=== PATIENT | male | born 1990 | race Caucasian/White ===

== ENCOUNTER 2017-05-24 04:58 | Emergency (ER) | payer OTHER ==
[~2017-05-24 04:58] MED LIST: ABIL5TAB; AMBI5TAB; DEPA500T2; No Historical Meds
[2017-05-24 05:03] VITALS: BP 136/85
== END 2017-05-24 06:26 | disposition left against medical advice (07) ==
LOC: M ED 04:58
DX: S09.90XA Unspecified injury of head, initial encounter (principal); X58.XXXA Exposure to other specified factors, initial encounter; Y92.89 Other specified places as the place of occurrence of the external cause; Y93.89 Activity, other specified; Y99.8 Other external cause status; Z53.29 Procedure and treatment not carried out because of patient's decision for other reasons

== ENCOUNTER → 2017-06-11 | Outpatient (CLI) | payer OTHER ==
[2017-06-11 12:49] LABS: MEAN CORPUSCULAR HEMOGLOBIN 30.6 pg (27.0-33.0); MEAN CORPUSCULAR HGB CONC 33.1 g/dl (32.0-36.5); MEAN CORPUSCULAR VOLUME 92.4 fl (80.0-96.0); RED CELL DISTRIBUTION WIDTH 13.2 % (11.5-14.5); WHITE BLOOD COUNT 8.3 K/mm3 (4.0-10.0)
[2017-06-11 13:13] LABS: ALBUMIN 3.7 GM/DL (3.2-5.2); ALBUMIN/GLOBULIN RATIO 1.06 (1.00-1.93); ALKALINE PHOSPHATASE 121 U/L (45-117); ALT/SGPT 52 U/L (12-78); ANION GAP 9 MEQ/L (8-16); AST/SGOT 23 U/L (15-37); BILIRUBIN,TOTAL 0.2 MG/DL (0.2-1.0); BLOOD UREA NITROGEN 7 MG/DL (7-18); CALCIUM LEVEL 8.9 MG/DL (8.5-10.1); CARBON DIOXIDE LEVEL 29 MEQ/L (21-32); CHLORIDE LEVEL 104 MEQ/L (98-107); CHOLESTEROL LEVEL 232 MG/DL (<200); CREATININE FOR GFR 1.09 MG/DL (0.70-1.30); GLOMERULAR FILTRATION RATE > 60.0 (>60); GLUCOSE, FASTING 81 MG/DL (70-105); POTASSIUM SERUM 4.8 MEQ/L (3.5-5.1); SODIUM LEVEL 142 MEQ/L (136-145); TOTAL PROTEIN 7.2 GM/DL (6.4-8.2); TRIGLYCERIDES LEVEL 408 MG/DL (<150)
== END ==
LOC: M LAB 11:53
PROVIDERS: ATTEND Family Medicine
DX: D64.9 Anemia, unspecified (principal)

== ENCOUNTER → 2017-09-09 | Outpatient (CLI) | payer OTHER ==
--- NOTE | 2017-09-09 16:57 | REP ---
LUMBOSACRAL SPINE, FIVE VIEWS: Lumbosacral spine performed. There is on compression fracture or malalignment with normal lumbar lordosis. There is no spondylolysis or spondylolisthesis. There is mild disc space narrowing and subchondral sclerosis at L4-5 and L5-S1 with sclerosis at the posterior facet joints at these levels as well. Posterior elements are intact. IMPRESSION: Mild degenerative changes. Signed by Howie Cortez MD 09/10/2017 09:16 A
== END ==
LOC: M RAD 15:57
PROVIDERS: ATTEND Family Medicine
DX: M54.5 Low back pain (principal)

== ENCOUNTER → 2017-11-13 | Outpatient (CLI) | payer OTHER ==
[2017-11-13 14:20] LABS: HEMATOCRIT 49.6 % (42.0-52.0); HEMOGLOBIN 15.9 g/dl (14.0-18.0); MEAN CORPUSCULAR HEMOGLOBIN 29.2 pg (27.0-33.0); MEAN CORPUSCULAR HGB CONC 32.1 g/dl (32.0-36.5); MEAN CORPUSCULAR VOLUME 91.2 fl (80.0-96.0); PLATELET COUNT, AUTOMATED 324 10^3/uL (150-450); RED BLOOD COUNT 5.44 10^6/uL (4.30-6.10); RED CELL DISTRIBUTION WIDTH 13.5 % (11.5-14.5); WHITE BLOOD COUNT 8.8 10^3/uL (4.0-10.0)
[2017-11-13 14:43] LABS: ESTIMATED AVERAGE GLUCOSE 105 MG/DL (60-110); HEMOGLOBIN A1c 5.3 %
[2017-11-13 15:03] LABS: TESTOSTERONE 397 NG/DL (241-827); TOTAL 25(OH) VITAMIN D 12.8 NG/ML (30.0-100.0)
[2017-11-13 15:16] LABS: ALBUMIN 3.9 GM/DL (3.2-5.2); ALBUMIN/GLOBULIN RATIO 0.93 (1.00-1.93); ALKALINE PHOSPHATASE 129 U/L (45-117); ALT/SGPT 46 U/L (12-78); ANION GAP 7 MEQ/L (8-16); AST/SGOT 27 U/L (7-37); BILIRUBIN,TOTAL 0.3 MG/DL (0.2-1.0); BLOOD UREA NITROGEN 10 MG/DL (7-18); CALCIUM LEVEL 9.1 MG/DL (8.5-10.1); CARBON DIOXIDE LEVEL 30 MEQ/L (21-32); CHLORIDE LEVEL 103 MEQ/L (98-107); CHOLESTEROL LEVEL 258 MG/DL (<200); CHOLESTEROL RISK RATIO 8.322 (<5); CREATININE FOR GFR 1.05 MG/DL (0.70-1.30); GLOMERULAR FILTRATION RATE > 60.0 (>60); GLUCOSE, FASTING 79 MG/DL (70-100); HDL CHOLESTEROL 31 MG/DL (>40); LDL CHOLESTEROL 170.8 MG/DL (<100); NON-HDL-C 227 MG/DL; POTASSIUM SERUM 4.7 MEQ/L (3.5-5.1); SODIUM LEVEL 140 MEQ/L (136-145); THYROID STIMULATING HORMONE 0.878 uIU/ML (0.358-3.740); TOTAL PROTEIN 8.1 GM/DL (6.4-8.2); TRIGLYCERIDES LEVEL 281 MG/DL (<150)
== END ==
LOC: M LAB 13:12
DX: R53.83 Other fatigue (principal); I10 Essential (primary) hypertension
CPT/HCPCS: 84403

== ENCOUNTER 2018-01-29 18:31 | Emergency (ER) | payer OTHER ==
[2018-01-29] MEDS: NORCO, ANEXSIA 5/325MG TABLET (HYDROcodone/ACETAMINOPHEN) PO (19:35)
== END 2018-01-29 19:41 | disposition home or self-care (01) ==
LOC: M ED 18:31
DX: K13.79 Other lesions of oral mucosa (principal); I10 Essential (primary) hypertension; F17.200 Nicotine dependence, unspecified, uncomplicated; Z79.899 Other long term (current) drug therapy
CPT/HCPCS: 99282

== ENCOUNTER 2018-02-05 08:36 | Emergency (ER) | payer OTHER ==
[2018-02-05] MEDS: NORCO, ANEXSIA 5/325MG TABLET (HYDROcodone/ACETAMINOPHEN) PO (09:39)
== END 2018-02-05 09:40 | disposition home or self-care (01) ==
LOC: M ED 08:36
DX: K13.79 Other lesions of oral mucosa (principal); M27.3 Alveolitis of jaws; Z98.818 Other dental procedure status; I10 Essential (primary) hypertension; F41.9 Anxiety disorder, unspecified; F17.200 Nicotine dependence, unspecified, uncomplicated; Z79.899 Other long term (current) drug therapy
CPT/HCPCS: 99282

== ENCOUNTER 2018-02-09 09:03 | Day surgery (SDC) | payer OTHER ==
[2018-02-09] MEDS: NS 1,000 ML IV (09:26)
[2018-02-09] MEDS ORDERED: PROPOFOL 200 MG/20 ML VIAL As Ordered ×2 (09:41→10:31)
[2018-02-09] MEDS ORDERED: LIDOCAINE 2% INJ 100 MG/5 ML SDV (FOR ANES.) As Ordered (09:41)
[2018-02-09] MEDS ORDERED: fentaNYL 100 MCG/2 ML INJECTION (J3010) As Ordered (10:05)
== END 2018-02-09 11:21 | disposition home or self-care (01) ==
LOC: M OPP 09:03
DX: K64.0 First degree hemorrhoids (principal); R10.32 Left lower quadrant pain; K62.5 Hemorrhage of anus and rectum; R19.7 Diarrhea, unspecified; K22.8 Other specified diseases of esophagus; K22.10 Ulcer of esophagus without bleeding; K31.89 Other diseases of stomach and duodenum; R12 Heartburn; K50.90 Crohn's disease, unspecified, without complications; F41.9 Anxiety disorder, unspecified; I10 Essential (primary) hypertension; F17.210 Nicotine dependence, cigarettes, uncomplicated; M54.2 Cervicalgia; G40.89 Other seizures; M12.9 Arthropathy, unspecified; K21.9 Gastro-esophageal reflux disease without esophagitis; Z79.899 Other long term (current) drug therapy
CPT/HCPCS: 45378

== ENCOUNTER → 2018-10-11 | Outpatient (CLI) | payer OTHER ==
[~2018-10-11] MED LIST changes: +ALPR0.5T3 PO; +CYCL5TAB PO; +DICY20TA11; +FLUO20CA19; +IBUP-1022 PO; +LISI-538 PO; +NORCOTAB PO; +TYLETAB14 PO
== END ==
LOC: M LAB 15:49
PROVIDERS: ATTEND Family Medicine
DX: F41.9 Anxiety disorder, unspecified (principal)

== ENCOUNTER 2020-11-06 16:40 | Emergency (ER) | payer OTHER ==
[~2020-11-06] VITALS: Ht 172.7 cm; Wt 86.4 kg
[~2020-11-06 16:40] MED LIST changes: -FLUO20CA19; +FLUO20CA22; +HYDR-3715 PO; -LISI-538 PO; +LISI20TA33 PO; -NORCOTAB PO
[2020-11-06] MEDS ORDERED: CLIN300C6 (16:49)
[2020-11-06] MEDS ORDERED: ACET-897 PO (16:49)
[2020-11-06] MEDS ORDERED: AMPICILLIN SOD/SULBACTAM SOD 3 GM in D5W MINI-BAG PLUS 100 ML IV ONE (18:00)
[2020-11-06] MEDS ORDERED: NS 1,000 ML IV ONE (18:00)
[2020-11-06] MEDS ORDERED: KETOROLAC 30 MG/ML 1ML VIAL IV ONE (18:00)
[2020-11-06] MEDS ORDERED: dexameTHASONE 20MG/5ML VIAL (J1100 PER 1MG) IV ONE (18:00)
[2020-11-06 19:04] LABS: BILIRUBIN,DIRECT 0.1 MG/DL (0.0-0.2); BILIRUBIN,TOTAL 0.6 MG/DL (0.2-1.0); C REACTIVE PROTEIN QUANTITATIV 5.24 MG/DL (0.00-0.30)
[2020-11-06 19:09] LABS: ERYTHROCYTE SEDIMENTATION RATE 5 mm/hr (0-15)
[2020-11-06 19:10] LABS: BASO % 0.2 % (0.0-1.0); EOS # 0.1 10^3/uL (0.0-0.5); EOS % 0.4 % (0.0-3.0); HEMATOCRIT 51.9 % (42.0-52.0); HEMOGLOBIN 16.9 g/dl (13.5-17.5); LYMPH # 1.6 10^3/uL (1.5-5.0); LYMPH % 11.5 % (24.0-44.0); MEAN CORPUSCULAR HEMOGLOBIN 29.2 pg (27.0-33.0); MEAN CORPUSCULAR HGB CONC 32.6 g/dl (32.0-36.5); MEAN CORPUSCULAR VOLUME 89.6 fl (80.0-96.0); MONO % 6.8 % (0.0-5.0); NEUTROPHILS # 11.3 10^3/uL (1.5-8.5); NEUTROPHILS % 80.6 % (36.0-66.0); PLATELET COUNT, AUTOMATED 301 10^3/uL (150-450); RED BLOOD COUNT 5.79 10^6/uL (4.30-6.10)
[2020-11-06 19:12] LABS: WHITE BLOOD COUNT 14.1 10^3/uL (4.0-10.0)
[2020-11-06] MEDS ORDERED: ISOVUE-370 76% 100ML VIAL As Ordered ONE (19:41)
[2020-11-06] MEDS ORDERED: NORCO, ANEXSIA 5/325MG TABLET (HYDROcodone/ACETAMINOPHEN) PO ONE (19:45)
--- NOTE | 2020-11-06 20:37 | REPVR ---
PROCEDURE INFORMATION: Exam: CT Neck With Contrast Exam date and time: 11/06/2020 8:09 PM Age: 30 years old Clinical indication: Pain; Other: Maxillary; Additional info: Significant maxillary swelling into submandibular TECHNIQUE: Imaging protocol: Computed tomography images of the neck with intravenous contrast. Radiation optimization: All CT scans at this facility use at least one of these dose optimization techniques: automated exposure control; mA and/or kV adjustment per patient size (includes targeted exams where dose is matched to clinical indication); or iterative reconstruction. Contrast material: ISOVUE 370; Contrast volume: 75 ml; Contrast route: INTRAVENOUS (IV); COMPARISON: No relevant prior studies available. FINDINGS: Paranasal sinuses: Circumferential mucosal thickening in the left maxillary sinus. Remaining sinuses are clear. No layering sinus fluid. Nasopharynx: Unremarkable. Oropharynx: Unremarkable. No significant tonsillar enlargement. Hypopharynx: Unremarkable. Larynx: Unremarkable. Normal epiglottis. Retropharyngeal space: Unremarkable. Submandibular/Parotid glands: Normal. Glands are normal in size. Thyroid: Normal. No enlarged or calcified nodules. Lymph nodes: Unremarkable. No lymphadenopathy. Trachea: Visualized trachea is unremarkable. Lungs: Unremarkable as visualized. Bones/joints: Unremarkable. No acute fracture. Soft tissues: Mild facial soft tissue swelling in the upper lip and anterior to the left maxilla. No abscess or drainable fluid collection. No subcutaneous gas or foreign bodies. IMPRESSION: Left facial cellulitis. No abscess or fluid collections. Electronically signed by: Philipp Freire On 11/06/2020 20:37:24 PM
[2020-11-06] MEDS ORDERED: AUGM875T28 PO (21:09)
[2020-11-06] MEDS ORDERED: HYDR-3713 PO (21:09)
[2020-11-06] MEDS ORDERED: DECA4TAB PO (21:11)
[2020-11-06] MEDS ORDERED: NORCO 5/325MG TABLET (BULK FOR ED) PO ONE (21:15)
[2020-11-06 21:28] VITALS: BP 145/89
== END 2020-11-06 21:32 | disposition home or self-care (01) ==
LOC: M ED 16:40
DX: L03.211 Cellulitis of face (principal); K08.89 Other specified disorders of teeth and supporting structures; F17.210 Nicotine dependence, cigarettes, uncomplicated
CPT/HCPCS: 70491; 80047; 80076; 83605; 85025; 85652; 86140; 87040; 87880; 96365; 96366; 96375; 99284; J1100; J1885; Q9967

== ENCOUNTER 2020-12-04 15:44 | Emergency (ER) | payer OTHER ==
[~2020-12-04] VITALS: Ht 172.7 cm; Wt 86.4 kg
[~2020-12-04 15:44] MED LIST changes: +ACET-897 PO; +AUGM875T28 PO; +CLIN300C6; +DECA4TAB PO; +HYDR-3713 PO
[2020-12-04] MEDS ORDERED: PERCOCET 5MG/325MG TAB PO ONE (16:05)
--- NOTE | 2020-12-04 16:24 | REP ---
INDICATION: fall COMPARISON: None. TECHNIQUE: Axial noncontrast images from the skull base to the thoracic inlet with coronal and sagittal re-formations This CT examination was performed using the following dose reduction techniques: Automated exposure control, adjustment of mA and/or kv according to the patient's size, and use of iterative reconstruction technique. FINDINGS: Normal alignment and lordosis is maintained. Cervical vertebral bodies including transverse processes and spinous processes are intact and there is no evidence for acute fracture / compression injury or subluxation. Spinal canal is patent. Posterior elements are intact. Paravertebral soft tissues are normal. IMPRESSION: Normal age-appropriate noncontrast cervical spine CT. No evidence for acute pathology or trauma/injury. <Electronically signed by Jose Barker > 12/04/20 [id number]
--- NOTE | 2020-12-04 16:29 | REP ---
INDICATION: fall. COMPARISON: None. TECHNIQUE: Axial noncontrast images of the thoracic spine with coronal and sagittal reformations. FINDINGS: Thoracic vertebral bodies are intact and without acute fracture/compression injury or subluxation. Alignment and kyphosis maintained. Disc spaces are normal. Spinal canal is patent and normal. Posterior elements and spinous processes are intact. Paravertebral soft tissues are normal. IMPRESSION: Normal age-appropriate thoracic spine CT. No evidence for acute trauma/injury. <Electronically signed by Jose Barker > 12/04/20 [id number]
--- NOTE | 2020-12-04 16:30 | REP ---
INDICATION: fall. COMPARISON: Comparison lumbar spine radiographs September 09, 2017.. TECHNIQUE: Helical scanning is acquired. 4 mm axial images are re-formatted. Coronal and sagittal MPR images are provided. FINDINGS: Lumbar vertebral body heights are preserved. Alignment is normal. No fracture or collapse is seen. Pedicles and posterior elements are intact. No transverse process or spinous process fracture is appreciated. There is no evidence of spondylolysis or spondylolisthesis. No paravertebral soft tissue edema is seen. There is mild degenerative disc narrowing at the L4-5 disc level with no evidence of disc protrusion. This is unchanged from the comparison radiograph September 09, 2017. IMPRESSION: No traumatic abnormality noted. Mild degenerative disc narrowing L4-5. Otherwise negative. <Electronically signed by Peter Verdugo > 12/04/20 [id number]
[2020-12-04] MEDS ORDERED: IBUP-1022 PO (16:57)
[2020-12-04] MEDS ORDERED: SOMA350T PO (16:57)
[2020-12-04 17:30] VITALS: BP 142/86
== END 2020-12-04 17:36 | disposition home or self-care (01) ==
LOC: M ED 15:44
DX: S13.4XXA Sprain of ligaments of cervical spine, initial encounter (principal); S23.3XXA Sprain of ligaments of thoracic spine, initial encounter; S33.5XXA Sprain of ligaments of lumbar spine, initial encounter; W11.XXXA Fall on and from ladder, initial encounter; Y92.89 Other specified places as the place of occurrence of the external cause; Y99.0 Civilian activity done for income or pay

== ENCOUNTER 2021-01-12 14:35 | Emergency (ER) | payer OTHER ==
[~2021-01-12] VITALS: Ht 172.7 cm; Wt 90.0 kg
[2021-01-12 14:35] VITALS: BP 149/83
[~2021-01-12 14:35] MED LIST changes: +SOMA350T PO
[2021-01-12] MEDS ORDERED: ACET-897 PO (14:53)
== END 2021-01-12 16:12 | disposition left against medical advice (07) ==
LOC: M ED 14:35
DX: Z53.21 Procedure and treatment not carried out due to patient leaving prior to being seen by health care provider (principal)

== ENCOUNTER 2021-01-21 16:05 | Emergency (ER) | payer OTHER ==
[~2021-01-21] VITALS: Ht 172.7 cm; Wt 86.4 kg
--- NOTE | 2021-01-21 16:39 | REP ---
INDICATION: fall injury. COMPARISON: None. TECHNIQUE: Four views FINDINGS: No acute fracture or destructive osseous lesion. The mortise is intact. IMPRESSION: As above <Electronically signed by Avinash Samano > 01/21/21 [id number]
[2021-01-21] MEDS ORDERED: KETOROLAC TROMETHAMINE 10 MG TAB PO ONE (17:40)
--- NOTE | 2021-01-21 18:16 | REP ---
INDICATION: fell off roof COMPARISON: None. TECHNIQUE: AP and lateral left lower leg. FINDINGS: There is no evidence of acute fracture, dislocation, or intrinsic bone disease. IMPRESSION: No fracture or dislocation. <Electronically signed by Howie Cortez > 01/21/21 [id number]
--- NOTE | 2021-01-21 18:18 | REP ---
INDICATION: fell off roof COMPARISON: None. TECHNIQUE: Four views left foot. FINDINGS: There is no evidence of acute fracture, dislocation, or intrinsic bone disease. IMPRESSION: No fracture or dislocation. <Electronically signed by Howie Cortez > 01/21/21 [id number]
[2021-01-21 18:57] VITALS: BP 142/87
[2021-01-22] MEDS ORDERED: HYDR-3715 PO (15:17)
== END 2021-01-21 18:59 | disposition home or self-care (01) ==
LOC: M ED 16:05
DX: S93.402A Sprain of unspecified ligament of left ankle, initial encounter (principal); W17.89XA Other fall from one level to another, initial encounter; Y92.89 Other specified places as the place of occurrence of the external cause; Y99.0 Civilian activity done for income or pay; I10 Essential (primary) hypertension; F41.9 Anxiety disorder, unspecified; G40.909 Epilepsy, unspecified, not intractable, without status epilepticus; F17.210 Nicotine dependence, cigarettes, uncomplicated

== ENCOUNTER 2023-01-13 11:51 | Emergency (ER) | payer OTHER ==
[~2023-01-13] VITALS: Ht 172.7 cm; Wt 90.9 kg
[2023-01-13 11:51] VITALS: BP 140/76
[~2023-01-13 11:51] MED LIST changes: +CLIN-250; -CLIN300C6; -DICY20TA11; +DICY20TA20
[2023-01-13 15:15] LABS: BASO % 0.3 % (0.0-1.0); EOS # 0.1 10^3/uL (0.0-0.5); HEMATOCRIT 44.4 % (42.0-52.0); HEMOGLOBIN 13.7 g/dl (13.5-17.5); LYMPH # 2.7 10^3/uL (1.5-5.0); LYMPH % 25.9 % (24.0-44.0); MEAN CORPUSCULAR HEMOGLOBIN 26.7 pg (27.0-33.0); MEAN CORPUSCULAR HGB CONC 30.9 g/dl (32.0-36.5); MEAN CORPUSCULAR VOLUME 86.4 fl (80.0-96.0); MONO # 0.7 10^3/uL (0.0-0.8); MONO % 6.6 % (2.0-8.0); NEUTROPHILS % 65.9 % (36.0-66.0); PLATELET COUNT, AUTOMATED 365 10^3/uL (150-450); RED BLOOD COUNT 5.14 10^6/uL (4.30-6.10); WHITE BLOOD COUNT 10.6 10^3/uL (4.0-10.0)
[2023-01-13 15:40] LABS: LIPASE 30 U/L (12-53)
[2023-01-13 15:43] LABS: ALBUMIN 3.6 G/DL (3.2-5.2); ALKALINE PHOSPHATASE 130 U/L (46-116); ALT/SGPT 23 U/L (7.0-40); AST/SGOT 20 U/L (<34); BILIRUBIN,DIRECT < 0.1 MG/DL (<0.4); BILIRUBIN,TOTAL 0.2 MG/DL (0.3-1.2); BLOOD UREA NITROGEN 7 MG/DL (9-23); CALCIUM LEVEL 9.1 MG/DL (8.5-10.1); CARBON DIOXIDE LEVEL 27 MMOL/L (20-31); CHLORIDE LEVEL 102 MMOL/L (98-107); CK-MB VALUE MASS < 1.0 NG/ML (<3.6); GLOMERULAR FILTRATION RATE > 60.0 (>60); GLUCOSE, FASTING 102 MG/DL (60-100); POTASSIUM SERUM 4.3 MMOL/L (3.5-5.1); SODIUM LEVEL 135 MMOL/L (136-145); TOTAL PROTEIN 7.6 G/DL (5.7-8.2)
[2023-01-13 15:52] LABS: CPK CREATINE PHOSPHOKINASE 81 U/L (46-171); MB/CK RELATIVE INDEX 1.23 (< OR =4)
[2023-01-13] MEDS ORDERED: levETIRAcetam INJection 1,000 MG in D5W 100 ML IV ONE (16:30)
[2023-01-13] MEDS ORDERED: levETIRAcetam 250MG TABLET (KEPPRA) PO ONE (16:35)
[2023-01-13 17:30] LABS: INR 0.94; PROTHROMBIN TIME 12.8 SECONDS (12.5-14.5)
[2023-01-13 17:31] LABS: PARTIAL THROMBOPLASTIN TIME 32.1 SECONDS (24.8-34.2)
[2023-01-13 17:34] LABS: D-DIMER QUANT 479.29 ng/ml (<500)
[2023-01-13] MEDS ORDERED: KEPP1TAB PO (17:39)
== END 2023-01-13 22:59 | disposition home or self-care (01) ==
LOC: M ED 11:51
DX: R07.89 Other chest pain (principal); R56.9 Unspecified convulsions; F90.9 Attention-deficit hyperactivity disorder, unspecified type; F17.200 Nicotine dependence, unspecified, uncomplicated; F12.90 Cannabis use, unspecified, uncomplicated

== ENCOUNTER 2024-01-07 15:37 | Emergency (ER) | payer OTHER ==
[~2024-01-07] VITALS: Ht 170.2 cm; Wt 100.9 kg
[~2024-01-07 15:37] MED LIST changes: +KEPP1TAB PO
[2024-01-07 16:35] LABS: BASO # 0.1 10^3/uL (0.0-0.2); BASO % 0.4 % (0.0-1.0); EOS # 0.2 10^3/uL (0.0-0.5); EOS % 1.3 % (0.0-3.0); HEMATOCRIT 45.4 % (42.0-52.0); HEMOGLOBIN 14.5 g/dl (13.5-17.5); LYMPH # 2.9 10^3/uL (1.5-5.0); LYMPH % 25.9 % (24.0-44.0); MEAN CORPUSCULAR HEMOGLOBIN 28.6 pg (27.0-33.0); MEAN CORPUSCULAR HGB CONC 31.9 g/dl (32.0-36.5); MEAN CORPUSCULAR VOLUME 89.5 fl (80.0-96.0); MONO # 0.6 10^3/uL (0.0-0.8); MONO % 5.4 % (2.0-8.0); NEUTROPHILS # 7.6 10^3/uL (1.5-8.5); NEUTROPHILS % 66.4 % (36.0-66.0); PLATELET COUNT, AUTOMATED 304 10^3/uL (150-450); RED BLOOD COUNT 5.07 10^6/uL (4.30-6.10); WHITE BLOOD COUNT 11.4 10^3/uL (4.0-10.0)
[2024-01-07 16:58] LABS: ETHYL ALCOHOL (ETHANOL) 0.005 % (0.000-0.010); SALICYLATE LEVEL < 3.0 MG/DL (<30)
[2024-01-07 16:59] LABS: ALBUMIN 3.7 G/DL (3.2-5.2); ALKALINE PHOSPHATASE 130 U/L (46-116); ALT/SGPT 26 U/L (7.0-40); AST/SGOT 12 U/L (<34); BILIRUBIN,DIRECT < 0.1 MG/DL (<0.4); BILIRUBIN,TOTAL 0.2 MG/DL (0.3-1.2); BLOOD UREA NITROGEN 14 MG/DL (9-23); CALCIUM LEVEL 9.3 MG/DL (8.5-10.1); CARBON DIOXIDE LEVEL 28 MMOL/L (20-31); CHLORIDE LEVEL 104 MMOL/L (98-107); CPK CREATINE PHOSPHOKINASE 71 U/L (46-171); CREATININE FOR GFR 1.08 MG/DL (0.70-1.30); GLOMERULAR FILTRATION RATE > 60.0 (>60); GLUCOSE, FASTING 97 MG/DL (60-100); POTASSIUM SERUM 4.3 MMOL/L (3.5-5.1); SODIUM LEVEL 137 MMOL/L (136-145); TOTAL PROTEIN 7.2 G/DL (5.7-8.2)
[2024-01-07 17:02] LABS: THYROID STIMULATING HORMONE 2.921 uIU/ML (0.55-4.78)
[2024-01-07 17:08] LABS: AMPHETAMINES LEVEL URINE NEGATIVE (NEGATIVE); BARBITURATES URINE NEGATIVE (NEGATIVE); BENZODIAZEPINES URINE NEGATIVE (NEGATIVE); COCAINE METABOLITE URINE NEGATIVE (NEGATIVE)
[2024-01-07 17:09] LABS: PHENCYCLIDINE URINE NEGATIVE (NEGATIVE)
[2024-01-07 17:12] LABS: CANNABINOIDS URINE POSITIVE (NEGATIVE); METHADONE URINE POSITIVE (NEGATIVE); OPIATES URINE POSITIVE (NEGATIVE)
[2024-01-07] MEDS: NS 1,000 ML IV ONE (17:34)
[2024-01-07] MEDS ORDERED: TRAZ1TAB14 PO (19:49)
[2024-01-07] MEDS ORDERED: METH40TA2 PO (19:49)
[2024-01-07] MEDS ORDERED: HOME MED LIST COMPLETE! XX SCH (19:50)
[2024-01-07 20:31] VITALS: BP 112/76; TEMP 98.2; O2SAT 97
== END 2024-01-07 20:45 | disposition home or self-care (01) ==
LOC: M ED 15:37
DX: T40.1X1A Poisoning by heroin, accidental (unintentional), initial encounter (principal); R00.1 Bradycardia, unspecified; I49.49 Other premature depolarization; I10 Essential (primary) hypertension; F90.9 Attention-deficit hyperactivity disorder, unspecified type; K50.90 Crohn's disease, unspecified, without complications; F17.200 Nicotine dependence, unspecified, uncomplicated; F19.10 Other psychoactive substance abuse, uncomplicated; Z79.891 Long term (current) use of opiate analgesic; Z79.899 Other long term (current) drug therapy; Z79.1 Long term (current) use of non-steroidal anti-inflammatories (NSAID)

== ENCOUNTER → 2024-02-15 | Outpatient (CLI) | payer OTHER ==
[~2024-02-15] MED LIST changes: +METH40TA2 PO; +TRAZ1TAB14 PO
[2024-02-15 17:17] LABS: HEMATOCRIT 52.4 % (42.0-52.0); HEMOGLOBIN 16.5 g/dl (13.5-17.5); MEAN CORPUSCULAR HEMOGLOBIN 28.2 pg (27.0-33.0); MEAN CORPUSCULAR HGB CONC 31.5 g/dl (32.0-36.5); MEAN CORPUSCULAR VOLUME 89.6 fl (80.0-96.0); PLATELET COUNT, AUTOMATED 343 10^3/uL (150-450); RED BLOOD COUNT 5.85 10^6/uL (4.30-6.10); WHITE BLOOD COUNT 11.2 10^3/uL (4.0-10.0)
[2024-02-15 17:32] LABS: ALBUMIN 3.8 G/DL (3.2-5.2); ALKALINE PHOSPHATASE 149 U/L (46-116); ALT/SGPT 24 U/L (7.0-40); AST/SGOT 13 U/L (<34); BILIRUBIN,TOTAL 0.2 MG/DL (0.3-1.2); BLOOD UREA NITROGEN 9 MG/DL (9-23); CALCIUM LEVEL 9.6 MG/DL (8.5-10.1); CARBON DIOXIDE LEVEL 26 MMOL/L (20-31); CHLORIDE LEVEL 105 MMOL/L (98-107); CREATININE FOR GFR 1.01 MG/DL (0.70-1.30); GLOMERULAR FILTRATION RATE > 60.0 (>60); GLUCOSE, FASTING 83 MG/DL (60-100); POTASSIUM SERUM 4.5 MMOL/L (3.5-5.1); SODIUM LEVEL 136 MMOL/L (136-145); TOTAL PROTEIN 7.6 G/DL (5.7-8.2)
[2024-02-15 17:57] LABS: HEPATITIS B SURFACE ANTIGEN NEGATIVE (NEGATIVE)
[2024-02-15 18:10] LABS: HIV 1&2 SCREEN NEGATIVE (NEGATIVE)
[2024-02-15 18:18] LABS: HEPATITIS C VIRUS ABY INDEX < 0.02 INDEX (<0.8)
[2024-02-15 21:16] LABS: GC DNA AMPLIFICATION NEGATIVE (NEGATIVE)
== END ==
LOC: M WUC 13:16
PROVIDERS: ATTEND Family Medicine
DX: F11.20 Opioid dependence, uncomplicated (principal)